=== PATIENT | female | born 2000 | race Caucasian/White ===

== ENCOUNTER 2021-10-07 13:17 | Emergency (ER) | payer BC, OTHER ==
[2021-10-07 13:38] VITALS: PULSE 111; RESP 18
[2021-10-07] MEDS ORDERED: IBUPROFEN 400 MG TAB PO STA (13:46)
[2021-10-07] MEDS ORDERED: ONDANSETRON ODT 4 MG TAB PO STA (13:47)
--- NOTE | 2021-10-07 13:50 | ED ---
General Adult HPI - General Chief complaint: Headache Stated complaint: headache Time Seen by Provider: 10/07/21 13:43 Source: patient, RN notes reviewed, old records reviewed Mode of arrival: ambulatory Limitations: no limitations - History of Present Illness Initial comments: This is a well-appearing 21-year-old female that presents to the emergency room with complaints of a left temporal headache since she woke up with this morning. Patient states that this is similar to her previous migraine headaches. She states that there has been a lot of coronavirus going around at work and she's been tested multiple times and no results. She states that she did vomit once this morning and does have a fever. She also states that the right side tonsil is swollen and painful. -: days(s) (1) Location: head (Left temporal) Quality: aching Consistency: constant Improves with: none Associated Symptoms: fever/chills, nausea/vomiting Treatments Prior to Arrival: other (tylenol 1000) - Related Data Previous Rx's Medication Instructions Recorded Azithromycin [Zithromax Z-pack (6 1 pack PO DIRECTED #6 tab 10/07/21 tabs)] Allergies Allergy/AdvReac Type Severity Reaction Status Date / Time No Known Allergies Allergy Verified 10/07/21 13:39 Review of Systems ROS Statement: Those systems with pertinent positive or pertinent negative responses have been documented in the HPI. ROS Other: All systems not noted in ROS Statement are negative. Past Medical History Additional Past Medical History / Comment(s): migraines History of Any Multi-Drug Resistant Organisms: None Reported Past Surgical History: No Surgical Hx Reported Past Psychological History: Anxiety, Bipolar, Depression Smoking Status: Never smoker Past Alcohol Use History: Occasional Past Drug Use History: None Reported General Exam Limitations: no limitations General appearance: alert, in no apparent distress Head exam: Present: atraumatic Eye exam: Present: normal appearance ENT exam: Present: mucous membranes moist Expanded Mouth exam: Present: normal external inspection, tongue normal, tongue elevation. Absent: drooling, trismus, muffled voice Throat exam: tonsillar erythema (Right tonsil is erythematous and swollen, no signs of exudate or abscess) Neck exam: Present: normal inspection, full ROM. Absent: tenderness, meningismus, lymphadenopathy, thyromegaly Respiratory exam: Present: normal lung sounds bilaterally. Absent: respiratory distress, wheezes, rales, rhonchi, stridor Cardiovascular Exam: Present: tachycardia Neurological exam: Present: alert, oriented X3 Psychiatric exam: Present: normal affect, normal mood Skin exam: Present: warm, dry, intact, normal color. Absent: rash, cyanosis, diaphoretic Course Vital Signs 10/07/21 10/07/21 10/07/21 13:35 15:03 16:15 Temperature 101.8 F H 97.2 F L 101.2 F H Pulse Rate 111 H 111 H 111 H Respiratory 18 18 18 Rate Blood Pressure 109/71 110/70 98/65 O2 Sat by Pulse 99 100 98 Oximetry Medical Decision Making - Medical Decision Making 21-year-old female presents with left temporal headache today similar to her previous migraine headaches. She states that she did vomit once this morning and does have a fever. She also states that the right side tonsil is swollen and painful. Strep positive, covid and influenza negative. L[place]kin test is negative. Patient has had a fever for one day. Lung sounds clear to auscultation. Patient states that she is feeling much better after the Tylenol. Her abdomen is soft and nontender. She was directed to take antibiotics and follow up with her doctor next week. Tylenol every 4 hours and Motrin every 6 hours as needed for fever, body aches or pain. Attending is Dr. Freire - Lab Data Lab Results 10/07/21 10/07/21 10/07/21 Range/Units 14:18 14:18 14:18 Urine Color Yellow Urine Appearance Cloudy H (Clear) Urine pH 8.5 H (5.0-8.0) Ur Specific [place] 1.025 (1.001-1.035) Urine Protein 1+ H (Negative) Urine Glucose (UA) Negative (Negative) Urine Ketones Negative (Negative) Urine Blood Negative (Negative) Urine Nitrite Negative (Negative) Urine Bilirubin Negative (Negative) Urine Urobilinogen <2.0 (<2.0) mg/dL Ur Leukocyte Esterase Negative (Negative) Urine RBC <1 (0-5) /hpf Urine WBC 3 (0-5) /hpf Ur Squamous Epith Cells 8 H (0-4) /hpf Amorphous Sediment Occasional H (None) /hpf Urine Mucus Rare H (None) /hpf Urine HCG, Qual (Not Detectd) Heterophile Antibody (Negative) Influenza Type A (PCR) Not Detected (Not Detectd) Influenza Type B (PCR) Not Detected (Not Detectd) RSV (PCR) Not Detected (Not Detectd) SARS-CoV-2 (PCR) Not Detected (Not Detectd) Group A Strep Rapid Positive A (Negative) 10/07/21 10/07/21 Range/Units 14:18 15:51 Urine Color Urine Appearance (Clear) Urine pH (5.0-8.0) Ur Specific [place] (1.001-1.035) Urine Protein (Negative) Urine Glucose (UA) (Negative) Urine Ketones (Negative) Urine Blood (Negative) Urine Nitrite (Negative) Urine Bilirubin (Negative) Urine Urobilinogen (<2.0) mg/dL Ur Leukocyte Esterase (Negative) Urine RBC (0-5) /hpf Urine WBC (0-5) /hpf Ur Squamous Epith Cells (0-4) /hpf Amorphous Sediment (None) /hpf Urine Mucus (None) /hpf Urine HCG, Qual Not Detected (Not Detectd) Heterophile Antibody Negative (Negative) Influenza Type A (PCR) (Not Detectd) Influenza Type B (PCR) (Not Detectd) RSV (PCR) (Not Detectd) SARS-CoV-2 (PCR) (Not Detectd) Group A Strep Rapid (Negative) Disposition Clinical Impression: Strep pharyngitis Disposition: HOME SELF-CARE Condition: Good Instructions (If sedation given, give patient instructions): Strep Throat (ED) Additional Instructions: Take antibiotics as prescribed and follow-up with the primary care doctor in 1 week. Return to the emergency room with any new or concerning symptoms. Prescriptions: Azithromycin [Zithromax Z-pack (6 tabs)] 1 pack PO DIRECTED #6 tab Is patient prescribed a controlled substance at d/c from ED?: No Referrals: Nonstaff,Physician [REFERRING] - 1-2 days Time of Disposition: 15:35
[2021-10-07 14:41] LABS: Amorphous Sediment,Urine Occasional /hpf; Appearance,Urine Cloudy (Clear); Bilirubin,Urine Negative (Negative); Blood,Urine Negative (Negative); Color,Urine Yellow; Glucose,Urine (UA) Negative (Negative); Ketones,Urine Negative (Negative); Leukocyte Esterase,Urine Negative (Negative); Mucus,Urine Rare /hpf; Nitrite,Urine Negative (Negative); PH, Urine 8.5 (5.0-8.0); Protein,Urine 1+ (Negative); RBC,Urine <1 /hpf (0-5); Specific Gravity,Urine 1.025 (1.001-1.035); Squamous Epithelial Cell,Urine 8 /hpf (0-4); Urobilinogen,Urine <2.0 mg/dL (<2.0); WBC,Urine 3 /hpf (0-5)
[2021-10-07 16:23] VITALS: BP 98/65; TEMP 101.2
== END 2021-10-07 15:54 | disposition home or self-care (01) ==
LOC: EC 13:17
DX: J02.0 Streptococcal pharyngitis (principal); Z20.822 Contact with and (suspected) exposure to COVID-19
CPT/HCPCS: 36415; 81001; 81025; 86308; 87430; 87636; 99284